=== PATIENT | male | born 2000 ===

== ENCOUNTER 2021-12-22 12:42 | Emergency (ER) | payer OTHER, BC ==
[~2021-12-22] VITALS: Ht 175.3 cm; Wt 77.3 kg
[2021-12-22 12:49] VITALS: TEMP 98.6
[2021-12-22] MEDS ORDERED: VYVANSE30 MG PO (13:23)
[2021-12-22 13:24] LABS: BASO % 0.2 % (0.0-2.0); EOS % 0.2 % (0.0-4.0); GRAN # 9.8 K/mm3 (1.4-6.5); GRAN % 79.2 % (42.2-75.2); HEMATOCRIT 41.4 % (42.0-52.0); HEMOGLOBIN 14.3 g/dl (13.5-18.0); LYMPH # 1.2 K/mm3 (1.2-3.4); LYMPH % 9.5 % (20.0-51.0); MEAN CELL VOLUME 92 fl (80.0-100.0); MEAN CORPUSCULAR HEMOGLOBIN 32 pg (27-31); MEAN CORPUSCULAR HGB CONC 35 g/dl (33.0-37.0); MEAN PLATELET VOLUME 10.7 fl (7.4-10.4); MONO # 1.3 K/mm3 (0.1-0.6); MONO % 10.7 % (1.7-9.3); PLATELET COUNT 235 K/mm3 (130-400); RED BLOOD COUNT 4.51 M/mm3 (4.20-5.60); REDCELL DISTRIBUTION WIDTH-CV 12.8 % (11.5-14.5)
[2021-12-22] MEDS ORDERED: ZANAFLEX CAPSULE4 MG PO (13:40)
[2021-12-22 13:45] LABS: ALBUMIN 4.2 gm/dL (3.5-5.0); BILIRUBIN,TOTAL 0.8 mg/dL (0.2-1.2); CALCIUM 9.4 mg/dL (8.4-10.2); CREATININE, serum 2.23 mg/dL (0.72-1.25); POTASSIUM 4.2 mmol/L (3.5-4.5)
[2021-12-22] MEDS ORDERED: ZOFRAN ODT4 MG PO (15:47)
[2021-12-22] MEDS ORDERED: PERCOCET 325 MG1 TA2 PO (15:47)
[2021-12-22 16:20] VITALS: BP 136/91; PULSE 99
== END 2021-12-22 16:18 | disposition home or self-care (01) ==
LOC: COL.ER 12:42
PROVIDERS: Personal Emergency Response Attendant
DX: M54.50 Low back pain, unspecified (principal); E86.0 Dehydration; R11.2 Nausea with vomiting, unspecified; X50.0XXA Overexertion from strenuous movement or load, initial encounter; Z28.310 Unvaccinated for COVID-19
CPT/HCPCS: J1790; J2270; J7030